=== PATIENT | male | born 1970 | race Hispanic/Latino ===

== ENCOUNTER 2017-10-25 07:14 | Emergency (ER) | payer SELFPAY ==
[2017-10-25] MEDS ORDERED: HYDROCODONE/APAP 5/325 MG TAB ONE (07:27)
[2017-10-25] MEDS ORDERED: CYCLOBENZAPRINE 10 MG TAB ONE (07:27)
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
== END 2017-10-25 09:19 | disposition home or self-care (01) ==
LOC: ER 07:14
DX: M54.5 Low back pain (principal)
CPT/HCPCS: 72040; 72070; 72100; 99284